=== PATIENT | male | born 1965 | race Caucasian/White ===

== ENCOUNTER 2018-12-26 10:51 | Emergency (ER) | payer OTHER ==
[~2018-12-26] VITALS: Ht 177.8 cm; Wt 84.0 kg
--- NOTE | 2018-12-26 11:09 | NUR ---
PT PRESENTING TO ER WITH LEFT ANKLE PAIN AND SWELLING DOWN TO FOOT X10 DAYS, PT STATES SWELLING STARTED THURSDAY, NO INJURY REPORTED. HX OF GOUT, TAKING MEDS PRESCRIBED. CONNECTED TO MONITORING, VSS. AT BEDSIDE. PA AT BEDSIDE FOR ASSESSMENT. CALL LIGHT WITHIN REACH. AWAITING ORDERS AT THIS TIME
[2018-12-26] MEDS ORDERED: KETOROLAC 30 MG/1 ML ONE (11:15)
[2018-12-26] MEDS ORDERED: HYDROcodone/APAP 5/325 TABLET ONE (11:15)
--- NOTE | 2018-12-26 11:21 | NUR ---
PT MEDICATED PER NOV. LABS COLLECTED AND RAD AT BEDSIDE
[2018-12-26] MEDS ORDERED: HYDROcodone/APAP 5/325 TABLET PO ONE (11:30)
[2018-12-26] MEDS ORDERED: KETOROLAC 30 MG/1 ML IM ONE (11:30)
[2018-12-26 11:38] LABS: ALBUMIN 3.6 g/dL (3.4-5.0); ANION GAP 5 mmol/L (5-15); CALCIUM 9.2 mg/dL (8.5-10.1); CHLORIDE 103 mmol/L (98-107); CREATININE 1.17 mg/dL (0.7-1.3)
[2018-12-26 11:39] LABS: BASOPHILS # (AUTO) 0.01 x10^3/uL (0-0.1); BASOPHILS % (AUTO) 0 % (0-1); EOSINOPHILS # (AUTO) 0.12 x10^3/uL (0-0.4); EOSINOPHILS % (AUTO) 1 % (1-7); LYMPHOCYTES # (AUTO) 1.24 x10^3/uL (1-3.4); LYMPHOCYTES % (AUTO) 11 % (22-44); MD NO; MEAN CORPUSCULAR HEMOGLOBIN 30.6 pg (27.5-34.5); MEAN CORPUSCULAR HGB CONC 34.1 g/dL (33.2-36.2); MEAN CORPUSCULAR VOLUME 89.9 fL (81-97); MEAN PLATELET VOLUME 6.6 fL (7.4-10.4); MONOCYTES # (AUTO) 0.95 x10^3/uL (0.2-0.8); MONOCYTES % (AUTO) 8 % (2-9); NEUTROPHILS # (AUTO) 9.18 x10^3/uL (1.8-6.8); NEUTROPHILS % (AUTO) 80 % (42-75); PLATELET COUNT 375 x10^3/uL (130-400); RED BLOOD COUNT 4.66 x10^6/uL (4.38-5.82); RED CELL DISTRIBUTION WIDTH 12.5 % (9.4-14.8)
--- NOTE | 2018-12-26 11:49 | NUR ---
ALL RESULTS BACK AT THIS TIME, CHART UP FOR RECHECK
--- NOTE | 2018-12-26 12:05 | NUR ---
MD TO BEDSIDE TO RECHECK PT AND UPDATE ON POC
[2018-12-26] MEDS ORDERED: LIDOCAINE-MPF 1%, 5ML INFIL ONE (12:30)
[2018-12-26] MEDS ORDERED: LIDOCAINE-MPF 1%, 5ML ONE ×2 (12:32→12:45)
--- NOTE | 2018-12-26 12:34 | NUR ---
PA AT BEDSIDE FOR ARTHEROCENTESIS.
[2018-12-26 12:35] VITALS: BP 137/89
--- NOTE | 2018-12-26 13:20 | NUR ---
JANA WRAP APPLIED AND CRUTCHES PROVIDED. PT READY FOR DC HOME
== END 2018-12-26 13:23 | disposition home or self-care (01) ==
LOC: ED 11:33
DX: M13.172 Monoarthritis, not elsewhere classified, left ankle and foot (principal); I10 Essential (primary) hypertension; E11.9 Type 2 diabetes mellitus without complications
CPT/HCPCS: 20605; 36415; 73630; 80048; 82040; 84550; 85025; 96372; 99284; J1885

== ENCOUNTER 2018-12-31 12:19 | Inpatient (IN) | payer OTHER ==
[~2018-12-31] VITALS: Ht 177.8 cm; Wt 92.1 kg
[2018-12-31] MEDS ORDERED: SODIUM CHLORIDE FLUSH 10ML SYR IVF ONE (13:00)
[2018-12-31 13:16] LABS: ANION GAP 7 mmol/L (5-15); CALCIUM 9.2 mg/dL (8.5-10.1); CHLORIDE 100 mmol/L (98-107)
[2018-12-31 13:21] LABS: BASOPHILS # (AUTO) 0.06 x10^3/uL (0-0.1); BASOPHILS % (AUTO) 1 % (0-1); EOSINOPHILS # (AUTO) 0.28 x10^3/uL (0-0.4); EOSINOPHILS % (AUTO) 2 % (1-7); LYMPHOCYTES # (AUTO) 1.22 x10^3/uL (1-3.4); LYMPHOCYTES % (AUTO) 10 % (22-44); MD NO; MEAN CORPUSCULAR HEMOGLOBIN 31.2 pg (27.5-34.5); MEAN CORPUSCULAR HGB CONC 34.6 g/dL (33.2-36.2); MEAN CORPUSCULAR VOLUME 90.1 fL (81-97); MEAN PLATELET VOLUME 6.4 fL (7.4-10.4); MONOCYTES # (AUTO) 0.64 x10^3/uL (0.2-0.8); MONOCYTES % (AUTO) 5 % (2-9); NEUTROPHILS # (AUTO) 10.27 x10^3/uL (1.8-6.8); NEUTROPHILS % (AUTO) 82 % (42-75); PLATELET COUNT 494 x10^3/uL (130-400); RED BLOOD COUNT 4.26 x10^6/uL (4.38-5.82); RED CELL DISTRIBUTION WIDTH 12.2 % (9.4-14.8)
--- NOTE | 2018-12-31 14:08 | NUR ---
PSS DELIVERY PROFESSIONAL: PT TO ROOM FROM LOBBY VIA W/C
[2018-12-31 14:36] LABS: HCT (SEDRATE) 38.4 % (39.2-51.8)
--- NOTE | 2018-12-31 14:54 | NUR ---
ASSUMED CARE OF PT AT THIS TIME. THIS IS A 53 YO MALE C/O LEFT ANKLE SWELLING/PAIN X APPROX 1 WEEK, WORSE TODAY. PT SENT HERE BY PCP SARI FOR R/O SEPTIC JOINT. JOINT NOT WARM TO TOUCH. REDNESS NOTED AROUND LATERAL MALLEOLUS. NO PITTING EDEMA NOTED. PULSES 2+. PT AO X 4. SKIN PWD. RESP EVEN AND EQAUL. WILL CONT TO MONITOR PT.
--- NOTE | 2018-12-31 15:53 | NUR ---
Dr. Willingham and admitting provider at bedside discussing plan of care.
[2018-12-31] MEDS ORDERED: LIDOCAINE-MPF 1%, 5ML ONE (15:59)
[2018-12-31] MEDS ORDERED: ACETAMINOPHEN 325 MG TABLET PO PRN (16:30)
[2018-12-31] MEDS ORDERED: INDOMETHACIN 25 MG CAPSULE PO PRN (16:30)
[2018-12-31] MEDS ORDERED: ONDANSETRON ODT 4 MG PO PRN (16:30)
[2018-12-31] MEDS ORDERED: VANCOMYCIN PER PHARMACY MC PRN (16:30)
[2018-12-31] MEDS ORDERED: ONDANSETRON 2MG/ML, 2ML IVPush PRN (16:30)
--- NOTE | 2018-12-31 16:40 | NUR ---
PT CURRENTLY RESTING ON GURNEY. NAD NOTED. SKIN PWD. RESP EVEN AND EQAUL. IV ACCESS ESTABLISHED. PT DENIES PAIN/NEEDS AT THIS TIME. SIGNIFICANT OTHER AT BEDSIDE. CALL LIGHT WITHIN REACH. WILL CONT TO MONITOR PT.
--- NOTE | 2018-12-31 16:50 | NUR ---
PT TO MRI VIA [facility] AT THIS TIME.
[2018-12-31] MEDS ORDERED: LISI-170 PO (17:18)
[2018-12-31] MEDS ORDERED: METF500T17 PO ×2 (17:18→17:41)
[2018-12-31] MEDS ORDERED: LISI2.5T PO (17:41)
[2018-12-31] MEDS ORDERED: INDO50CA5 PO (17:41)
[2018-12-31] MEDS ORDERED: ALLO100T30 PO (17:41)
[2018-12-31] MEDS ORDERED: TAMS-11 PO (17:41)
[2018-12-31] MEDS: AMPICILLIN/SULBACTAM 3 GM in SODIUM CHLORIDE 0.9% 100 ML IV SCH (17:44)
[2018-12-31 18:08] VITALS: BP 140/89
[2018-12-31] MEDS ORDERED: PHARMACOKINETIC MONITORING MC PRN (18:30)
[2018-12-31] MEDS ORDERED: PHARMACOKINETIC CONSULTATION MC ONE (18:30)
[2018-12-31] MEDS: SODIUM CHLORIDE 0.9% 1,000 ML IV SCH (19:00)
[2018-12-31] MEDS: TAMSULOSIN 0.4 MG CAP.ER.24H PO SCH (20:44)
[2018-12-31] MEDS: metFORMIN 500 MG TABLET PO SCH (20:44)
[2018-12-31] MEDS: VANCOMYCIN 1,600 MG in SODIUM CHLORIDE 0.9% 250 ML IV SCH (20:44)
[2018-12-31] MEDS: ENOXAPARIN 40 MG/0.4 ML SQ SCH (20:44)
[2018-12-31] MEDS ORDERED: INDOMETHACIN 50 MG CAPSULE ONE (20:49)
[2018-12-31] MEDS ORDERED: LIDOCAINE 1%, 10ML INFIL ONE (21:30)
[2018-12-31] MEDS ORDERED: MORPHINE SULFATE 4 MG/ML, 1ML ONE (21:43)
[2018-12-31] MEDS ORDERED: morphine SULFATE/PF 0.5 MG/ML, 10ML IV ONE (22:00)
[2019-01-01] MEDS: AMPICILLIN/SULBACTAM 3 GM in SODIUM CHLORIDE 0.9% 100 ML IV SCH ×3 (01:44→18:19)
[2019-01-01 01:55] VITALS: BP 124/80
[2019-01-01 05:26] LABS: BASOPHILS # (AUTO) 0.06 x10^3/uL (0-0.1); BASOPHILS % (AUTO) 1 % (0-1); EOSINOPHILS # (AUTO) 0.34 x10^3/uL (0-0.4); EOSINOPHILS % (AUTO) 4 % (1-7); LYMPHOCYTES # (AUTO) 1.46 x10^3/uL (1-3.4); LYMPHOCYTES % (AUTO) 15 % (22-44); MD NO; MEAN CORPUSCULAR HEMOGLOBIN 30.3 pg (27.5-34.5); MEAN CORPUSCULAR HGB CONC 33.7 g/dL (33.2-36.2); MEAN CORPUSCULAR VOLUME 89.8 fL (81-97); MONOCYTES # (AUTO) 0.83 x10^3/uL (0.2-0.8); MONOCYTES % (AUTO) 9 % (2-9); NEUTROPHILS % (AUTO) 72 % (42-75); PLATELET COUNT 425 x10^3/uL (130-400); RED BLOOD COUNT 3.93 x10^6/uL (4.38-5.82); RED CELL DISTRIBUTION WIDTH 12.4 % (9.4-14.8)
[2019-01-01 05:32] LABS: CHLORIDE 108 mmol/L (98-107)
[2019-01-01 06:00] LABS: ANION GAP 7 mmol/L (5-15); CALCIUM 8.8 mg/dL (8.5-10.1); CREATININE 0.97 mg/dL (0.7-1.3)
[2019-01-01 06:52] VITALS: BP 128/79
[2019-01-01] MEDS: metFORMIN 500 MG TABLET PO SCH ×2 (08:47→20:40)
[2019-01-01] MEDS: LISINOPRIL 5 MG TABLET PO SCH (08:47)
[2019-01-01] MEDS: ALLOPURINOL 300 MG TABLET PO SCH (08:52)
[2019-01-01] MEDS ORDERED: COLCHICINE 0.6 MG TABLET PO SCH (09:00)
[2019-01-01] MEDS ORDERED: TAMSULOSIN 0.4 MG CAP.ER.24H PO SCH (09:00)
[2019-01-01] MEDS ORDERED: KETOROLAC 30 MG/1 ML IM SCH (09:30)
[2019-01-01] MEDS: KETOROLAC 30 MG/1 ML IVPush SCH ×3 (10:12→22:45)
[2019-01-01] MEDS: SODIUM CHLORIDE 0.9% 1,000 ML IV SCH (12:32)
[2019-01-01 12:33] VITALS: BP 111/73
[2019-01-01 19:16] VITALS: BP 129/82
[2019-01-01] MEDS: TAMSULOSIN 0.4 MG CAP.ER.24H PO SCH (20:40)
[2019-01-01] MEDS: VANCOMYCIN 1,600 MG in SODIUM CHLORIDE 0.9% 250 ML IV SCH (20:40)
[2019-01-01] MEDS: ENOXAPARIN 40 MG/0.4 ML SQ SCH (20:40)
[2019-01-02 00:06] VITALS: BP 125/77
[2019-01-02] MEDS: AMPICILLIN/SULBACTAM 3 GM in SODIUM CHLORIDE 0.9% 100 ML IV SCH ×3 (01:45→17:38)
[2019-01-02] MEDS: KETOROLAC 30 MG/1 ML IVPush SCH ×4 (05:05→22:41)
[2019-01-02] MEDS: SODIUM CHLORIDE 0.9% 1,000 ML IV SCH ×2 (05:54→20:37)
[2019-01-02 07:45] VITALS: BP 136/82
[2019-01-02] MEDS: ALLOPURINOL 300 MG TABLET PO SCH (08:34)
[2019-01-02] MEDS: metFORMIN 500 MG TABLET PO SCH ×2 (08:34→19:22)
[2019-01-02] MEDS: LISINOPRIL 5 MG TABLET PO SCH (08:34)
[2019-01-02] MEDS: INSULIN LISPRO 100 UNITS/ML, PEN SQ-INSULIN SCH ×3 (11:18→21:00)
[2019-01-02 14:15] VITALS: BP 126/80
[2019-01-02 19:44] VITALS: BP 124/78
[2019-01-02] MEDS: VANCOMYCIN 1,600 MG in SODIUM CHLORIDE 0.9% 250 ML IV SCH (20:37)
[2019-01-02] MEDS: TAMSULOSIN 0.4 MG CAP.ER.24H PO SCH (20:37)
[2019-01-02] MEDS: ENOXAPARIN 40 MG/0.4 ML SQ SCH (20:37)
[2019-01-03] MEDS: AMPICILLIN/SULBACTAM 3 GM in SODIUM CHLORIDE 0.9% 100 ML IV SCH (01:17)
[2019-01-03 01:54] LABS: HEMOGLOBIN A1C 7.6 % (4.2-6.3)
[2019-01-03 03:00] VITALS: BP 138/86
[2019-01-03] MEDS: KETOROLAC 30 MG/1 ML IVPush SCH (05:23)
[2019-01-03 06:53] VITALS: BP 124/78
[2019-01-03] MEDS: INSULIN LISPRO 100 UNITS/ML, PEN SQ-INSULIN SCH (07:29)
[2019-01-03] MEDS: metFORMIN 500 MG TABLET PO SCH (07:32)
[2019-01-03] MEDS: ALLOPURINOL 300 MG TABLET PO SCH (07:32)
[2019-01-03] MEDS: LISINOPRIL 5 MG TABLET PO SCH (07:35)
[2019-01-03] MEDS ORDERED: AMOXICILLIN/CLAV 875-125MG TABLET PO SCH (08:00)
[2019-01-03] MEDS ORDERED: DOXYCYCLINE 100MG TABLET PO SCH (09:00)
[2019-01-03] MEDS ORDERED: ACET325T14 PO (09:39)
[2019-01-03] MEDS ORDERED: AMOX1TAB12 PO (09:39)
[2019-01-03] MEDS ORDERED: DOXY100T PO (09:39)
== END 2019-01-03 11:16 | disposition home or self-care (01) | DRG 603 ==
LOC: ED 14:13 → EDIP 15:35 → 4NOR 17:58 → DCLOUNGE 01-03 11:00
PROVIDERS: ADMIT Internal Medicine; ATTEND Internal Medicine
PROC: 0S9G3ZZ Drainage of Left Ankle Joint, Percutaneous Approach (ICD-10-PCS; principal; 2018-12-31)
DX: L03.119 Cellulitis of unspecified part of limb (principal); E87.6 Hypokalemia; G47.00 Insomnia, unspecified; I10 Essential (primary) hypertension; M10.9 Gout, unspecified; M76.60 Achilles tendinitis, unspecified leg; N40.0 Benign prostatic hyperplasia without lower urinary tract symptoms; E11.9 Type 2 diabetes mellitus without complications
CPT/HCPCS: 36415; J3490; 80048; 82040; 82962; 83036; 84550; 85025; 85651; 86140; 86141; 87040; 87070; 87075; 87205; G0378; J0295; J1650; J1885; J2274; J3370; J1815; J7030; J7050

== ENCOUNTER 2019-01-07 14:05 | Day surgery (SDC) | payer OTHER ==
[~2019-01-07] VITALS: Ht 177.8 cm; Wt 79.2 kg
[~2019-01-07 14:05] MED LIST: ACET325T14 PO; ALLO100T30 PO; AMOX1TAB12 PO; DOXY100T PO; INDO50CA5 PO; LISI-170 PO; LISI2.5T PO; METF500T17 PO; TAMS-11 PO
[2019-01-07 15:09] VITALS: BP 124/82
[2019-01-07] MEDS ORDERED: CEPH-368 PO (15:22)
[2019-01-07] MEDS ORDERED: HYDR25TA11 PO (15:22)
[2019-01-07] MEDS ORDERED: LACTATED RINGERS 1,000 ML IV SCH (15:22)
[2019-01-07] MEDS ORDERED: OXYC5CAP2 PO (15:22)
[2019-01-07] MEDS ORDERED: MIDAZOLAM 1 MG/ML, 2ML ONE (15:51)
[2019-01-07] MEDS ORDERED: FENTANYL PF 100 MCG/2ML ONE ×2 (15:51→17:20)
[2019-01-07] MEDS ORDERED: BUPIVACAINE/PF 0.5% ONE (15:52)
[2019-01-07] MEDS ORDERED: LIDOCAINE-MPF 2% ,5ML ONE (15:52)
[2019-01-07] MEDS ORDERED: PHENYLEPHRINE 10 MG/ML ONE (16:54)
[2019-01-07] MEDS ORDERED: ROCURONIUM 10MG/ML,5ML ONE (16:54)
[2019-01-07] MEDS ORDERED: SUCCINYLCHOLINE 20 MG/ML, 10ML ONE (16:54)
[2019-01-07] MEDS ORDERED: FENTANYL PF 100 MCG/2ML IV PRN (17:30)
[2019-01-07] MEDS ORDERED: ALBUTEROL/IPRATROPIUM 2.5MG/0.5MG, 3 ML NPPB PRN (17:30)
[2019-01-07] MEDS ORDERED: MIDAZOLAM 1 MG/ML, 2ML IV PRN (17:30)
[2019-01-07] MEDS ORDERED: ONDANSETRON 2MG/ML, 2ML IV PRN (17:30)
[2019-01-07] MEDS ORDERED: PROMETHAZINE 25 MG/ML, 1ML IV PRN (17:30)
[2019-01-07] MEDS ORDERED: OXYcodone 5 MG/5 ML ORAL.SOL UDC PO PRN (17:30)
[2019-01-07] MEDS ORDERED: hydrALAzine 20 MG/ML, 1ML IV PRN (17:30)
[2019-01-07] MEDS ORDERED: METOPROLOL 1 MG/ML, 5ML IV PRN (17:30)
[2019-01-07] MEDS ORDERED: HYDROmorphone 2 MG/ML, 1ML IVPush PRN (17:30)
[2019-01-07] MEDS ORDERED: SCOPOLAMINE PATCH, 1.5MG PATCH.TD72 TD PRN (17:30)
[2019-01-07] MEDS ORDERED: MEPERIDINE/PF 25MG/0.5ML IVPush PRN (17:30)
[2019-01-07] MEDS ORDERED: KETOROLAC 30 MG/1 ML IV PRN (17:30)
[2019-01-07] MEDS ORDERED: ACETAMINOPHEN 325 MG TABLET PO PRN (17:30)
[2019-01-07] MEDS ORDERED: ONDANSETRON 2MG/ML, 2ML ONE (18:04)
[2019-01-07] MEDS ORDERED: DEXAMETHASONE 4 MG/ML, 1ML ONE (18:04)
[2019-01-07] MEDS ORDERED: CEFAZOLIN 1,000 MG ONE (18:04)
[2019-01-07] MEDS ORDERED: PROPOFOL 10 MG/ML, 20ML ONE (18:04)
[2019-01-11 16:05] LABS: ANA SCREEN NEGATIVE (Negative)
== END 2019-01-07 21:20 | disposition home or self-care (01) ==
LOC: OR 14:05 → 4NOR 18:56 → OR 21:20
PROVIDERS: ATTEND Orthopaedic Surgery
DX: M24.672 Ankylosis, left ankle (principal); M65.872 Other synovitis and tenosynovitis, left ankle and foot; M25.872 Other specified joint disorders, left ankle and foot; M76.62 Achilles tendinitis, left leg; M25.472 Effusion, left ankle; I10 Essential (primary) hypertension; E11.9 Type 2 diabetes mellitus without complications; N40.0 Benign prostatic hyperplasia without lower urinary tract symptoms; M10.9 Gout, unspecified; Z79.891 Long term (current) use of opiate analgesic; Z79.899 Other long term (current) drug therapy; Z82.3 Family history of stroke; Z72.89 Other problems related to lifestyle; Z98.890 Other specified postprocedural states; Z99.3 Dependence on wheelchair
CPT/HCPCS: 28020; 28120; 29898; 64445; 64447; 81374; 82962; 84550; 85651; 86038; 86140; 86200; 86430; 87070; 87075; 87176; 87205; J0690; J1100; J2250; J2405; J2704; J3010; J7120; G0378; J0330; J2370